=== PATIENT | male | born 1965 | race Caucasian/White ===

== ENCOUNTER → 2021-11-05 | Outpatient (CLI) | payer OTHER | LOC: CPPFTMAIN 07:44 | PROVIDERS: ATTEND Family Medicine | DX: R06.00 Dyspnea, unspecified (principal) | CPT/HCPCS: 94060; 94726; 94729 ==

== ENCOUNTER 2025-02-28 10:20 | Emergency (ER) | payer OTHER ==
--- NOTE | 2025-02-28 11:08 | ED ---
General Adult HPI - General Chief complaint: Extremity Problem,Nontraumatic Stated complaint: Right knee pain, swelling Time Seen by Provider: 02/28/25 10:31 Source: patient Mode of arrival: ambulatory Limitations: no limitations - History of Present Illness Initial comments: Patient is a 59-year-old male present to the emergency department with concerns with right knee pain. Symptoms have been occurring for a few weeks now. Patient has discomfort and swelling diffusely of the knee. No trauma. No warmth. No redness. No fever. Discomfort increases with movement. Patient was at a different facility and had negative x-ray and ultrasound done. - Related Data Previous Rx's Medication Instructions Recorded Indomethacin [Indocin] 50 mg PO TID PRN #15 capsule 02/28/25 Allergies Allergy/AdvReac Type Severity Reaction Status Date / Time No Known Allergies Allergy Verified 02/28/25 10:28 Review of Systems ROS Statement: Those systems with pertinent positive or pertinent negative responses have been documented in the HPI. ROS Other: All systems not noted in ROS Statement are negative. Constitutional: Denies: fever Eyes: Denies: eye pain ENT: Denies: ear pain Musculoskeletal: Reports: as per HPI Skin: Denies: rash Past Medical History Past Medical History: Cancer, COPD, Diabetes Mellitus Additional Past Medical History / Comment(s): metastatic skin ca Additional Past Surgical History / Comment(s): neck surgery removed tumors Smoking Status: Never smoker General Exam Limitations: no limitations General appearance: alert, in no apparent distress Head exam: Present: normocephalic Eye exam: Present: normal appearance Neck exam: Present: normal inspection Respiratory exam: Present: normal lung sounds bilaterally Cardiovascular Exam: Present: regular rate, normal rhythm Expanded Peripheral pulses: 2+: Posterior Tibialis (R) Extremities exam: Present: joint swelling (Moderate right knee effusion. No erythema. No warmth.). Absent: calf tenderness Neurological exam: Present: alert. Absent: motor sensory deficit Psychiatric exam: Present: normal affect, normal mood Skin exam: Present: normal color. Absent: erythema Course Vital Signs 02/28/25 10:25 Temperature 98 F Pulse Rate 92 Respiratory 20 Rate Blood Pressure 124/77 O2 Sat by Pulse 99 Oximetry Procedures - Joint Aspiration/Injection Consent Obtained: verbal consent Indications: R/O septic arthritis Side of Body: right Joint Aspirated: knee Ultrasound Guidance: No Skin Prep: Povidone-Iodine1% Local Anesthesia Used: Lidocaine 1% Amount of Anesthesia Used (mLs): 4 Needle Size Used: 18G Syringe Size Used: Other Fluid Obtained: clear (Yellow) Total Fluid Obtained (mls): 60 Patient Tolerated Procedure: well Complications: none Medical Decision Making - Medical Decision Making Was pt. sent in by a medical professional or institution (, LUCIA, VISUAL BASIC .NET DEVELOPER, urgent care, hospital, or assisted...) When possible be specific @ -No Did you speak to anyone other than the patient for history (EMS, parent, family, police, friend...)? What history was obtained from this source @ -No Did you review nursing and triage notes (agree or disagree)? Why? @ -I reviewed and agree with nursing and triage notes Were old charts reviewed (outside hosp., previous admission, EMS record, old EKG, old radiological studies, urgent care reports/EKG's, assisted records)? Report findings @ -No old charts were reviewed Differential Diagnosis (chest pain, altered mental status, abdominal pain women, abdominal pain men, vaginal bleeding, weakness, fever, dyspnea, syncope, headache, dizziness, GI bleed, back pain, seizure, CVA, palpatations, mental health, musculoskeletal)? @ -Differential Musculoskeletal Muscular strain, contusion, ligament sprain, fracture, arthritis, septic arthritis, bursitis, cellulitis, muscle spasm, nerve compression, DVT, arterial occlusion, herpes zoster, electrolyte abnormality, tumor.... This is not meant to be in all inclusive list EKG interpreted by me (3pts min.). @ -As above X-rays interpreted by me (1pt min.). @ -X-ray right knee without acute abnormality CT interpreted by me (1pt min.). @ -None done U/S interpreted by me (1pt. min.). @ -None done What testing was considered but not performed or refused? (CT, X-rays, U/S, labs)? Why? @ -Synovial fluid sent to lab What meds were considered but not given or refused? Why? @ -None Did you discuss the management of the patient with other professionals (professionals i.e. LUCIA Guthrie, VISUAL BASIC .NET DEVELOPER, lab, RT, psych nurse, social work therapist, wire turning machine operator, teacher, fire management officer, bilingual case manager)? Give summary @ -No Was smoking cessation discussed for >3mins.? @ -No Was critical care preformed (if so, how long)? @ -No Were there social determinants of health that impacted care today? How? (Homelessness, low income, unemployed, alcoholism, drug addiction, transportation, low edu. Level, literacy, decrease access to med. care, custodial, rehab)? @ -No Was there de-escalation of care discussed even if they declined (Discuss DNR or withdrawal of care, Hospice)? DNR status @ -No What co-morbidities impacted this encounter? (DM, HTN, Smoking, COPD, CAD, Cancer, CVA, ARF, Chemo, Hep., AIDS, mental health diagnosis, sleep apnea, morbid obesity)? @ -None Was patient admitted / discharged? Hospital course, mention meds given and route, prescriptions, significant lab abnormalities, going to OR and other pertinent info. @ -Patient presents with right knee effusion. Arthrocentesis with 60 cc. Patient tolerated procedure well. Fluid is clear/yellow. No clinical concerns for infection. Labs are send out. Patient recommended close follow-up with his doctor for lab results. Undiagnosed new problem with uncertain prognosis? @ -No Drug Therapy requiring intensive monitoring for toxicity (Heparin, Nitro, Insulin, Cardizem)? @ -No Were any procedures done? @ -No Diagnosis/symptom? @ -Knee effusion Acute, or Chronic, or Acute on Chronic? @ -Acute Uncomplicated (without systemic symptoms) or Complicated (systemic symptoms)? @ -Default Side effects of treatment? @ -No Exacerbation, Progression, or Severe Exacerbation? @ -No Poses a threat to life or bodily function? How? (Chest pain, [place], [place], pneumonia, PE, COPD, DKA, ARF, appy, cholecystitis, CVA, Diverticulitis, Homicidal, Suicidal, threat to staff... and all critical care pts) @ -No Disposition Clinical Impression: Knee effusion, right Disposition: HOME SELF-CARE Condition: Stable Instructions (If sedation given, give patient instructions): Swollen Knee Joint (ED) Additional Instructions: Please do follow-up with your primary care physician as well as orthopedics in the next couple of days for recheck. Have both doctors check results from fluid drawn from your knee today. Prescription sent to pharmacy. Return for fever, redness, warmth, increased swelling, worsening symptoms or other concerns. Prescriptions: Indomethacin [Indocin] 50 mg PO TID PRN #15 capsule PRN Reason: Pain Is patient prescribed a controlled substance at d/c from ED?: No Referrals: Tracy Lester MD [Primary Care Provider] - 1-2 days Time of Disposition: 12:49
--- NOTE | 2025-02-28 11:23 | XR ---
EXAMINATION TYPE: XR knee complete RT DATE OF EXAM: 02/28/2025 11:19 AM INDICATION: Patient age:Male; 59 years old; Reason for study: pain; PHH. pain COMPARISON: None. TECHNIQUE: The Right knee(s) was examined in Frontal, lateral and oblique projections. FINDINGS: No evidence of any acute osseous pathology or soft tissue swelling. Moderate-sized suprap atellar joint effusion. Small suprapatellar spurring. IMPRESSION: 1. No acute osseous pathology. 2. Moderate-sized suprapatellar joint effusion. [facility], , 02/28/2025 11:21 AM
[2025-02-28] MEDS: LIDOCAINE 1% INJ 10MG/ML (20 ML MDV) SQ ONE (11:28)
[2025-02-28 13:05] VITALS: BP 110/88; PULSE 73; RESP 18; TEMP 98.9
[2025-02-28 14:16] LABS: Appearance,BF Cloudy; Color,BF Yellow; Nucleated Cells, Body Fluid 17840 /uL
[2025-02-28 14:18] LABS: Mononuclear WBC,Body Fluid 8 %; Polynuclear WBC,Body Fluid 92 %; Total Cells Counted,Body Fluid 100
[2025-02-28 17:46] LABS: Synovial Fld Crystals None Seen (None Seen)
[2025-02-28 18:42] LABS: LDH, Body Fluid Source Body Fluid
== END 2025-02-28 13:05 | disposition home or self-care (01) ==
LOC: EC 10:20
DX: M25.461 Effusion, right knee (principal)
CPT/HCPCS: 89060; 89050; 87070; 87205; 83615; 73562; 99284; 20610; J2003